=== PATIENT | female | born 2000 | race African-American/Black ===

== ENCOUNTER → 2023-01-16 11:12 | Outpatient (CLI) | payer OTHER, SELFPAY ==
[2023-01-16 12:59] LABS: Cortisol Random 15.7 ug/dL
[2023-01-16 13:16] LABS: Thyroid Stimulating Hormone 1.81 uIU/mL (0.47-4.68)
== END ==
PROVIDERS: Referring Provider Internal Medicine Cardiovascular Disease; Visit Provider Internal Medicine Cardiovascular Disease
DX: I10 Essential (primary) hypertension (principal)
CPT/HCPCS: 36415; 82088; 82384; 82533; 84244; 84443

== ENCOUNTER → 2023-02-08 11:36 | Outpatient (CLI) | payer OTHER, SELFPAY ==
[2023-02-19 07:27] LABS: Aldosterone/Renin Activity Rat 6.2 (0.0-30.0); Plama Renin, LC/MS/MS 1.181 ng/mL/hr (0.167-5.380)
== END ==
PROVIDERS: Referring Provider Internal Medicine Cardiovascular Disease; Visit Provider Internal Medicine Cardiovascular Disease
DX: I10 Essential (primary) hypertension (principal)
CPT/HCPCS: 82088; 82384; 84244